=== PATIENT | female | born 1980 | race Caucasian/White ===

== ENCOUNTER 2021-05-31 13:08 | Emergency (ER) | payer MEDICARE, OTHER ==
[2021-05-31] MEDS ORDERED: Promethazine HCl 25 MG/ML VIAL ONE (14:30)
[2021-05-31] MEDS ORDERED: Lidocaine Viscous Sol 2% 15 ml UD Cup ONE (14:30)
[2021-05-31] MEDS ORDERED: Mag-Al Plus 1200 MG/1200 MG/120 MG/30 ML UDCUP ONE (14:30)
[2021-05-31 14:32] LABS: #Eosinphils 0.1 10x3/uL (0.0-0.5); #Monocytes 0.6 10x3/uL (0.0-1.1); #Neutrophils 4.4 10x3/uL (1.5-8.4); %Basophils 0.3 % (0.0-2.0); %Eosinophils 1.1 % (0.0-6.0); %Lymphocytes 28.7 % (18.0-47.0); %Monocytes 8.4 % (0.0-10.0); %Neutrophils 61.2 % (40.0-75.0); Hemoglobin 12.4 g/dL (12.0-15.5); Mean Corpuscular HGB CONC 31.9 g/dL (32.0-36.0); Mean Corpuscular Hemoglobin 28.1 pg (27.0-33.0); Mean Platelet Volume 11.3 fl (7.4-10.4); Platelet Count 353 10x3/uL (150-450); RBC Distribution Width 14.4 % (11.5-14.5); Red Blood Cell (RBC) Count 4.42 10x6/uL (3.90-5.03); White Blood Cell (WBC) Count 7.1 10x3/uL (3.5-10.5)
[2021-05-31 14:43] LABS: ALT (SGPT) 23 U/L (8-55); AST (SGOT) 26 U/L (5-34); Albumin 3.2 g/dL (3.5-5.0); Alkaline Phosphatase 81 U/L (40-110); Anion Gap 12 mmol/L (10-20); BUN (Urea Nitrogen) 7 mg/dL (7.0-18.7); Bilirubin, Total 0.1 mg/dL (0.2-1.2); Calc. Creatinine Clearance 0 mL/min (70-130); Calcium 8.5 mg/dL (7.8-10.44); Carbon Dioxide 23 mmol/L (22-29); Chloride 106 mmol/L (98-107); Globulin 2.8 g/dL (2.4-3.5); Glucose 66 mg/dL (70-105); Lipase 5 U/L (8-78); Potassium 3.8 mmol/L (3.5-5.1); Sodium 137 mmol/L (136-145)
[2021-05-31] MEDS ORDERED: Ketorolac Tromethamine 30 MG/ML VIAL ONE (15:39)
[2021-05-31] MEDS ORDERED: Acetaminophen 500 MG TAB ONE (15:40)
[2021-05-31] MEDS ORDERED: Famotidine/PF 20 mg/2ml Vial ONE (17:44)
[2021-06-01 00:42] LABS: SARS-CoV-2 PCR by NAA Not Detected (NotDetected)
== END 2021-05-31 18:04 | disposition left against medical advice (07) ==
LOC: CSHERS 13:08
DX: E10.649 Type 1 diabetes mellitus with hypoglycemia without coma (principal); R10.10 Upper abdominal pain, unspecified; R10.11 Right upper quadrant pain; R10.13 Epigastric pain; M79.10 Myalgia, unspecified site; R11.2 Nausea with vomiting, unspecified; Z20.822 Contact with and (suspected) exposure to COVID-19; Z79.4 Long term (current) use of insulin
CPT/HCPCS: 71045; 80053; 82962; 83605; 83690; 85025; 87804 ×2; 93005; U0003; U0005; 36415; 36416; 96372; 96374; 96375; J0500; J1885; J2550; S0028

== ENCOUNTER 2025-02-16 07:39 | Inpatient (IN) | payer OTHER ==
[2025-02-16] MEDS ORDERED: Droperidol 5 MG/2 ML VIAL ONE (08:35)
[2025-02-16 08:36] LABS: Actual Bicarbonate (HCO3v) 19.9 mEq/L (22-28); Analyzer IN Cardio CS ER; Base Excess -3.8 mEq/L (-2 - +2); Calcium, Ionized (venous) 1.01 mmol/L (1.16-1.32); Chloride (VBG) 101 mmol/L (98-106); Critical Notified Whom: COCJEF; Hematocrit-VBG 39 % (36.0-47.0); Hemoglobin (Hb) 13.2 g/dL (11.7-15.5); Potassium (VBG) 4.60 mmol/L (3.70-5.30); Puncture Site Other Site; RapidComm Collect By LAB; Sodium 133 mmol/L (133-146)
[2025-02-16 08:41] LABS: #Basophils 0.05 10x3/uL (0.0-0.2); #Eosinophils 0.06 10x3/uL (0.0-0.5); #Monocytes 0.83 10x3/uL (0.0-1.1); #Neutrophils 11.70 10x3/uL (1.5-8.4); %Basophils 0.3 % (0.0-2.0); %Eosinophils 0.4 % (0.0-6.0); %Lymphocytes 12.1 % (18.0-47.0); %Monocytes 5.7 % (0.0-10.0); %Neutrophils 81.2 % (40.0-75.0); Hematocrit 35.2 % (34.9-44.5); Hemoglobin 11.8 g/dL (12.0-15.5); Mean Corpuscular Hemoglobin 29.0 pg (27.0-33.0); Mean Corpuscular Volume 86.5 fL (81.6-98.3); Platelet Count 343 10x3/uL (150-450); Red Blood Cell (RBC) Count 4.07 10x6/uL (3.90-5.03); White Blood Cell (WBC) Count 14.44 10x3/uL (3.5-10.5)
[2025-02-16 08:45] LABS: Glucose, Urine (Dipstick) >=1000 mg/dL (Negative); Leukocyte Negative (Negative); Protein, Urine (Dipstick) 30 mg/dl (Neg-Trace); Specific Gravity, Urine 1.030 (1.005-1.030)
[2025-02-16 09:00] LABS: Bacteria/HPF 2+ HPF (None Seen); CAUTI Indications for Culture Pelvic or flank pain; RBC/HPF 0-3 HPF (0-3); WBC/HPF 0-3 HPF (0-3)
[2025-02-16 09:00] LABS: ALT (SGPT) 31 U/L (Less than 34); AST (SGOT) 25 U/L (11-34); Albumin 3.4 g/dL (3.1-4.5); Alkaline Phosphatase 67 U/L (40-110); Anion Gap 22 mmol/L (10-20); BUN (Urea Nitrogen) 8 mg/dL (7.0-18.7); Bilirubin, Total 0.3 mg/dL (0.3-1.2); Calc. Creatinine Clearance 0 mL/min (70-130); Calcium 8.4 mg/dL (7.8-10.44); Carbon Dioxide 15 mmol/L (22-29); Chloride 103 mmol/L (98-107); Globulin 2.5 g/dL (2.4-3.5); Glucose 355 mg/dL (70-105); Magnesium 1.8 mg/dL (1.6-2.6); Potassium 5.0 mmol/L (3.5-5.1); Sodium 135 mmol/L (136-145); Troponin I Less than 0.010 ng/mL (< 0.028)
[2025-02-16 09:02] LABS: Urine Culture Reflex No No
[2025-02-16] MEDS ORDERED: Dextrose 50% Abboject 50 ML SYRINGE SLOW IVP PRN (09:57)
[2025-02-16] MEDS ORDERED: Glucagon 1 MG/ML KIT IM PRN (09:57)
[2025-02-16] MEDS ORDERED: Acetaminophen 325 MG TAB ONE (12:32)
[2025-02-16] MEDS ORDERED: Prochlorperazine 10 MG/2 ML VIAL ONE (12:32)
[2025-02-16] MEDS: Acetaminophen 325 MG TAB PO PRN (12:41)
[2025-02-16] MEDS: Prochlorperazine 10 MG/2 ML VIAL SLOW IVP PRN (12:43)
[2025-02-16 15:46] VITALS: BMI 22.6
[2025-02-16 16:07] LABS: Anion Gap 11 mmol/L (10-20); BUN (Urea Nitrogen) 6 mg/dL (7.0-18.7); Calc. Creatinine Clearance 114 mL/min (70-130); Calcium 8.0 mg/dL (7.8-10.44); Carbon Dioxide 23 mmol/L (22-29); Chloride 107 mmol/L (98-107); Glucose 145 mg/dL (70-105); Potassium 3.6 mmol/L (3.5-5.1); Sodium 137 mmol/L (136-145)
[2025-02-16] MEDS: Droperidol 5 MG/2 ML VIAL SLOW IVP SCH (19:16)
[2025-02-16] MEDS: Famotidine/PF 20 mg/2ml Vial SLOW IVP SCH (20:47)
[2025-02-17 05:03] LABS: #Basophils 0.05 10x3/uL (0.0-0.2); #Eosinophils 0.15 10x3/uL (0.0-0.5); #Monocytes 0.95 10x3/uL (0.0-1.1); #Neutrophils 6.16 10x3/uL (1.5-8.4); %Basophils 0.4 % (0.0-2.0); %Eosinophils 1.3 % (0.0-6.0); %Lymphocytes 34.3 % (18.0-47.0); %Monocytes 8.5 % (0.0-10.0); %Neutrophils 55.1 % (40.0-75.0); Hematocrit 31.3 % (34.9-44.5); Hemoglobin 10.3 g/dL (12.0-15.5); Mean Corpuscular Hemoglobin 28.6 pg (27.0-33.0); Mean Corpuscular Volume 86.9 fL (81.6-98.3); Platelet Count 341 10x3/uL (150-450); Red Blood Cell (RBC) Count 3.60 10x6/uL (3.90-5.03); White Blood Cell (WBC) Count 11.18 10x3/uL (3.5-10.5)
[2025-02-17 05:18] LABS: Anion Gap 12 mmol/L (10-20); BUN (Urea Nitrogen) 5 mg/dL (7.0-18.7); Calc. Creatinine Clearance 106 mL/min (70-130); Calcium 7.8 mg/dL (7.8-10.44); Carbon Dioxide 21 mmol/L (22-29); Chloride 106 mmol/L (98-107); Glucose 267 mg/dL (70-105); Potassium 4.1 mmol/L (3.5-5.1); Sodium 135 mmol/L (136-145)
[2025-02-17] MEDS: Lantus 1000 UNITS/10 ML VIAL SC SCH (11:07)
[2025-02-17] MEDS: Azithromycin 250 MG TAB PO SCH (11:08)
[2025-02-18 04:07] LABS: #Basophils 0.03 10x3/uL (0.0-0.2); #Eosinophils 0.08 10x3/uL (0.0-0.5); #Monocytes 0.85 10x3/uL (0.0-1.1); #Neutrophils 4.32 10x3/uL (1.5-8.4); %Basophils 0.4 % (0.0-2.0); %Eosinophils 0.9 % (0.0-6.0); %Lymphocytes 38.2 % (18.0-47.0); %Monocytes 9.9 % (0.0-10.0); %Neutrophils 50.4 % (40.0-75.0); Hematocrit 32.3 % (34.9-44.5); Hemoglobin 10.7 g/dL (12.0-15.5); Mean Corpuscular Hemoglobin 28.5 pg (27.0-33.0); Mean Corpuscular Volume 85.9 fL (81.6-98.3); Platelet Count 357 10x3/uL (150-450); Red Blood Cell (RBC) Count 3.76 10x6/uL (3.90-5.03); White Blood Cell (WBC) Count 8.57 10x3/uL (3.5-10.5)
[2025-02-18 04:21] LABS: Anion Gap 9 mmol/L (10-20); BUN (Urea Nitrogen) Less than 4 mg/dL (7.0-18.7); Calc. Creatinine Clearance 120 mL/min (70-130); Calcium 8.1 mg/dL (7.8-10.44); Carbon Dioxide 29 mmol/L (22-29); Chloride 107 mmol/L (98-107); Glucose 120 mg/dL (70-105); Potassium 3.8 mmol/L (3.5-5.1); Sodium 141 mmol/L (136-145)
[2025-02-18] MEDS: Lantus 1000 UNITS/10 ML VIAL SC SCH (08:12)
[2025-02-18 09:14] VITALS: BP 120/93; TEMP 98.4
== END 2025-02-18 11:05 | disposition home or self-care (01) | DRG 391 ==
LOC: CSHERS 07:39 → CSHERHOLD 09:37 → CSHICU 15:40 → CSHTELE 02-18 08:26 → CSHICU 02-18 08:46
PROVIDERS: ADMIT Hospitalist; ATTEND Family Medicine
DX: K52.9 Noninfective gastroenteritis and colitis, unspecified (principal); E11.10 Type 2 diabetes mellitus with ketoacidosis without coma; D84.9 Immunodeficiency, unspecified; E11.65 Type 2 diabetes mellitus with hyperglycemia; Z88.1 Allergy status to other antibiotic agents; Z88.5 Allergy status to narcotic agent; Z88.8 Allergy status to other drugs, medicaments and biological substances; F41.9 Anxiety disorder, unspecified; Z90.49 Acquired absence of other specified parts of digestive tract; Z98.890 Other specified postprocedural states; Z90.710 Acquired absence of both cervix and uterus
CPT/HCPCS: 36416; 80048; 80053; 81001; 82010; 82805; 83036; 83605; 83735; 84100; 84484; 85025; 93005; 96374; 96375; J0780; J1308; J1642; J1790; J1815; J2270; J3010; J7030

== ENCOUNTER 2025-02-24 17:44 | Emergency (ER) | payer OTHER ==
[2025-02-24 18:22] LABS: Glucose, Urine (Dipstick) >=1000 mg/dL (Negative); Leukocyte Negative (Negative); Protein, Urine (Dipstick) Negative (Neg-Trace); Specific Gravity, Urine 1.010 (1.005-1.030)
[2025-02-24 18:56] LABS: CAUTI Indications for Culture Dysuria,urgency,freq; RBC/HPF 0-3 HPF (0-3); WBC/HPF 0-3 HPF (0-3)
[2025-02-24 18:57] LABS: Bacteria/HPF 2+ HPF (None Seen); Mucous/LPF Rare LPF (<2+)
[2025-02-24 18:58] LABS: Urine Culture Reflex No No
[2025-02-24] MEDS ORDERED: Droperidol 5 MG/2 ML VIAL ONE (19:45)
[2025-02-24 19:46] LABS: Hematocrit 33.8 % (34.9-44.5); Hemoglobin 11.3 g/dL (12.0-15.5); Mean Corpuscular Hemoglobin 28.6 pg (27.0-33.0); Mean Corpuscular Volume 85.6 fL (81.6-98.3); Platelet Count 320 10x3/uL (150-450); Red Blood Cell (RBC) Count 3.95 10x6/uL (3.90-5.03); White Blood Cell (WBC) Count 9.91 10x3/uL (3.5-10.5)
[2025-02-24 19:51] LABS: Actual Bicarbonate (HCO3v) 27.7 mEq/L (22-28); Analyzer IN Cardio CS ER; Base Excess 2.2 mEq/L (-2 - +2); Calcium, Ionized (venous) 1.08 mmol/L (1.16-1.32); Chloride (VBG) 96 mmol/L (98-106); Hematocrit-VBG 36 % (36.0-47.0); Hemoglobin (Hb) 12.1 g/dL (11.7-15.5); Potassium (VBG) 4.77 mmol/L (3.70-5.30); Puncture Site Other Site; RapidComm Collect By Lab; Sodium 128 mmol/L (133-146)
[2025-02-24 20:00] LABS: BHCG - Serum POSITIVE (NEGATIVE); Pregs Control Background? CLEAR/WHITE (CLR/WHITE); Pregs Control Bar Appear? YES (CONTROL BAR)
[2025-02-24 20:07] LABS: ALT (SGPT) 90 U/L (Less than 34); AST (SGOT) 159 U/L (11-34); Albumin 3.4 g/dL (3.1-4.5); Alkaline Phosphatase 63 U/L (40-110); Anion Gap 9 mmol/L (10-20); BUN (Urea Nitrogen) 6 mg/dL (7.0-18.7); Bilirubin, Total 0.3 mg/dL (0.3-1.2); Calc. Creatinine Clearance 0 mL/min (70-130); Calcium 8.5 mg/dL (7.8-10.44); Carbon Dioxide 25 mmol/L (22-29); Chloride 96 mmol/L (98-107); Globulin 2.8 g/dL (2.4-3.5); Lipase 7 U/L (8-78); Magnesium 2.0 mg/dL (1.6-2.6); Potassium 4.8 mmol/L (3.5-5.1); Sodium 125 mmol/L (136-145)
[2025-02-24 20:12] LABS: Glucose 742 mg/dL (70-105)
[2025-02-24] MEDS ORDERED: Benzonatate 100 MG CAP ONE ×2 (20:18→20:19)
[2025-02-24] MEDS ORDERED: Lantus 1000 UNITS/10 ML VIAL SC SCH (20:30)
[2025-02-24 21:02] LABS: MDiff Complete? YES; Platelet Adequacy Comment Appears Adequate
== END 2025-02-24 23:35 | disposition home or self-care (01) ==
LOC: CSHERS 17:44
DX: E10.9 Type 1 diabetes mellitus without complications (principal); K52.9 Noninfective gastroenteritis and colitis, unspecified; Z79.4 Long term (current) use of insulin
CPT/HCPCS: 71045; 74176; 80053; 81001; 82010; 82805; 82962; 83605; 83690; 83735; 84100; 84702; 84703; 85025; 93005; 94760; J1790; J1815 ×2; J3010; 36416; 96374; 96375